=== PATIENT | female | born 1950 | race Caucasian/White ===

== ENCOUNTER 2021-01-04 16:26 | Emergency (ER) | payer OTHER, MEDICARE ==
[~2021-01-04] VITALS: Ht 160 cm; Wt 76.2 kg
[2021-01-04] MEDS ORDERED: SIMVASTATIN40 MG PO (16:37)
[2021-01-04] MEDS ORDERED: ZESTRIL5 MG PO (16:37)
[2021-01-04] MEDS ORDERED: VITAMIN E1000 UNIT PO (16:38)
[2021-01-04] MEDS ORDERED: METFORMIN HCL500 M2 PO (16:38)
[2021-01-04] MEDS ORDERED: FISH OIL 1,0001 EAC3 PO (16:38)
[2021-01-04] MEDS ORDERED: VITAMIN C100 MG PO (16:38)
[2021-01-04 18:10] VITALS: BP 114/68
== END 2021-01-04 18:12 | disposition home or self-care (01) ==
LOC: M.ERS 16:26
DX: S16.1XXA Strain of muscle, fascia and tendon at neck level, initial encounter (principal); S20.211A Contusion of right front wall of thorax, initial encounter; S00.03XA Contusion of scalp, initial encounter; I10 Essential (primary) hypertension; E11.9 Type 2 diabetes mellitus without complications; Z79.899 Other long term (current) drug therapy; Z88.7 Allergy status to serum and vaccine; W19.XXXA Unspecified fall, initial encounter; Y93.89 Activity, other specified; Y92.89 Other specified places as the place of occurrence of the external cause; Y99.8 Other external cause status

== ENCOUNTER 2021-03-15 14:22 | Emergency (ER) | payer OTHER, MEDICARE ==
[~2021-03-15] VITALS: Ht 160 cm; Wt 74.8 kg
[~2021-03-15 14:22] MED LIST: FISH OIL 1,0001 EAC3 PO; METFORMIN HCL500 M2 PO; SIMVASTATIN40 MG PO; VITAMIN C100 MG PO; VITAMIN E1000 UNIT PO; ZESTRIL5 MG PO
[2021-03-15] MEDS ORDERED: XANAX 0.5 MG0.5 M1 PO (14:41)
[2021-03-15] MEDS ORDERED: ZANAFLEX4 MG PO (17:00)
[2021-03-15 17:14] VITALS: BP 126/54
== END 2021-03-15 17:17 | disposition home or self-care (01) ==
LOC: M.ERS 14:22
DX: S30.0XXA Contusion of lower back and pelvis, initial encounter (principal); S09.90XA Unspecified injury of head, initial encounter; I10 Essential (primary) hypertension; E11.9 Type 2 diabetes mellitus without complications; E78.00 Pure hypercholesterolemia, unspecified; Z79.84 Long term (current) use of oral hypoglycemic drugs; Z79.891 Long term (current) use of opiate analgesic; Z79.1 Long term (current) use of non-steroidal anti-inflammatories (NSAID); Z79.899 Other long term (current) drug therapy; Z88.7 Allergy status to serum and vaccine; W07.XXXA Fall from chair, initial encounter; Y93.89 Activity, other specified; Y92.89 Other specified places as the place of occurrence of the external cause; Y99.8 Other external cause status